=== PATIENT | female | born 1970 | race Caucasian/White ===

== ENCOUNTER → 2017-02-08 | Outpatient (CLI) | payer BC | LOC: KOH-I 12:27 | DX: M25.512 Pain in left shoulder (principal) | CPT/HCPCS: 73030 ==

== ENCOUNTER → 2017-02-22 | Outpatient (CLI) | payer BC | LOC: MRI 09:00 → KOH-I 02-23 08:00 | DX: M25.512 Pain in left shoulder (principal) | CPT/HCPCS: 73221 ==